=== PATIENT | male | born 1960 ===

== ENCOUNTER 2016-09-04 15:26 | Emergency (ER) | payer OTHER ==
--- NOTE | 2016-09-04 16:03 | UC ---
calista Grimaldo Timothy, scribed for Leighann Law MD on 09/04/16 at 1554 . Skin Complaint HPI - HPI Summary HPI Summary: Timothy Quiles is a 56 yo male presenting to [facility] with recurring hives on his posterior neck, left upper back and now right forearm x 4-5 days. pt states had rash on his right vazquez for the past 2 weeks and was given Rx hydrocortisone ointment by PCP which has helped. Pt states hives are worse at night and very itchy He states hot showers do not affect his Sx. Pt denies any new products, foods, or enviroments that he might be reacting too. pt has not taken any antihistamines or other products to treat his symptoms. Denies throat tightening or difficulty breathing, facial swelling, as well as fevers or chills. He denies any PMHx. Pt medication list reviewed this visit. - History of Current Complaint Time Seen by Provider: 09/04/16 15:58 Stated Complaint: ALLERGIC REACTION Hx Obtained From: Patient Onset/Duration: Sudden Onset, Lasting Weeks, Still Present Skin Exposure Onset/Duration: Days Ago Timing: Constant Onset Severity: Moderate Current Severity: Moderate Pain Intensity: 0 Pain Scale Used: 0-10 Numeric Location: Other - RLE vazquez, right neck, back of head Character: Hives Aggravating: Other - worse at night Alleviating: Nothing Associated Signs & Symptoms: Positive: Rash. Negative: Fever, Chills, Throat Tightening - Allergy/Home Medications Allergies/Adverse Reactions: Allergies Allergy/AdvReac Type Severity Reaction Status Date / Time No Known Allergies Allergy Verified 09/04/16 15:41 Home Medications: Home Medications Triamcinolone 0.1% OINT(NF) [Kenolog 0.1% OINT(NF)] 1 applic .SEE ORDER [History] Review of Systems Constitutional: Negative Skin: Rash - hives right neck, back of head; resolving rash Right anterior vazquez Eyes: Negative ENT: Negative Respiratory: Negative Cardiovascular: Negative Gastrointestinal: Negative Genitourinary: Negative Motor: Negative Neurovascular: Negative Musculoskeletal: Negative Neurological: Negative Psychological: Negative All Other Systems Reviewed And Are Negative: Yes PMH/Surg Hx/FS Hx/Imm Hx Previously Healthy: Yes - Surgical History Surgical History: None - Family History Known Family History: Negative: Cardiac Disease, Hypertension, Diabetes - Social History Occupation: Employed Full-time Alcohol Use: Rare Substance Use Type: None Smoking Status (MU): Never Smoked Tobacco Physical Exam Triage Information Reviewed: Yes Appearance: Well-Appearing, No Pain Distress Vital Signs: Initial Vital Signs Temp 98.3 F 09/04/16 15:37 Pulse 55 09/04/16 15:37 Resp 18 09/04/16 15:37 BP 112/84 09/04/16 15:37 Pulse Ox 98 09/04/16 15:37 Vital Signs Reviewed: Yes ENT: Positive: Hearing grossly normal, Pharynx normal, TMs normal Neck exam: Normal Neck: Positive: Supple, Nontender, No Lymphadenopathy Respiratory: Positive: Chest non-tender, Lungs clear, Normal breath sounds, No respiratory distress, No accessory muscle use Cardiovascular: Positive: RRR, No Murmur, Pulses Normal Bowel Sounds: Positive: Present Musculoskeletal Exam: Normal Musculoskeletal: Positive: Strength Intact, ROM Intact, No Edema Neurological Exam: Normal Neurological: Positive: Alert, Muscle Tone Normal Psychological Exam: Normal Skin: Positive: Other - pt with raised, red lesion hives on left side posterior neck, occiptal hair line, right forearm raised, gal size right anterior vazquez - resolving patchy,flat macular appearing erythema Course/Dx - Course Course Of Treatment: Timothy Quiles is a 56 yo male presenting to [facility] with rash on his right vazquez for the past 2 weeks, seen by his PCP and given itching cream which has helped RLE lesion. Pt has since developed hives on left side of his neck and back of head, right forearm. Pt medication list reviewed this visit. Pt with urticaria rash - unclear cause. will start medrol dose pack. benadryl - with precautions. PCP f/u. return precautions reviewed. pt comfortable and in agreement with plan - Differential Diagnoses - Skin Complaint Differential Diagnoses: Allergic Reaction, Contact Dermatitis - Diagnoses Provider Diagnoses: hives Discharge - Discharge Plan Condition: Stable Disposition: HOME Prescriptions: Methylprednisolone [Medrol Dosepak 4 MG*] 4 mg PO .SEE AMARJIT INSTRUCTION #1 tab Patient Education Materials: Urticaria (ED), Cold Compress or Soak (ED) Referrals: Colt Conner MD [Medical Doctor] - 1 Week Additional Instructions: Please follow up with your primary care physician regarding your visit to urgent care today. -Take prednisone once daily directly as prescribed until gone -Okay to take Benadryl, 25mg, every 8 hours for itching. This may cause drowsiness. Do NOT drive, operate machinery or drink alcohol while taking this medication - Avoid getting over heated - hot tubs, hot shower, exercise for 2-3 days - Avoid NSAIDs (Motrin, Advil, Naprosyn, Aleve) for 2-3 days - Okay to apply cool compresses to your wounds - Call your doctor or return with questions or concerns The documentation as recorded by the calista reese Timothy accurately reflects the service I personally performed and the decisions made by me, Leighann Law MD.
== END 2016-09-04 16:10 | disposition home or self-care (01) ==
LOC: UCEAST 15:26
DX: L50.9 Urticaria, unspecified (principal)
CPT/HCPCS: 99202; G0463